=== PATIENT | male | born 1980 | race African-American/Black ===

== ENCOUNTER 2018-11-26 09:47 | Emergency (ER) | payer MEDICARE, MEDICAID ==
[~2018-11-26] VITALS: Ht 172.7 cm; Wt 187.7 kg
[~2018-11-26 09:47] MED LIST: LASIX 40 MG TAB40 MG PO; PREVACID30 M3 PO; TESSALON PER100 MG PO; ULTRAM50 M1 PO; ZOFRAN ODT4 MG PO; ZPAK PO
[2018-11-26] MEDS ORDERED: LASIX 20 MG TAB20 MG PO (10:04)
[2018-11-26] MEDS ORDERED: POTASSI19 XX (10:04)
[2018-11-26] MEDS ORDERED: LOSARTAN POTASS25 MG PO (10:04)
[2018-11-26 10:53] VITALS: BP 173/75
== END 2018-11-26 10:43 | disposition home or self-care (01) ==
LOC: ED 09:47
DX: I10 Essential (primary) hypertension (principal)

== ENCOUNTER 2022-04-22 16:55 | Observation (INO) | payer MEDICARE, MEDICAID ==
[~2022-04-22] VITALS: Ht 172.7 cm; Wt 175.2 kg
[~2022-04-22 16:55] MED LIST changes: +LASIX 20 MG TAB20 MG PO; +LOSARTAN POTASS25 MG PO; +POTASSI19 XX
--- NOTE | 2022-04-22 18:30 | NUR ---
PATIENT TO ED 6, AMBULATORY.
[2022-04-22 18:58] LABS: BASO% 0.3 % (0-3); EOS% 2.1 % (0-8); HEMATOCRIT 37.2 % (39.0-50.0); HEMOGLOBIN 11.3 g/dl (14.0-18.0); MEAN CELL VOLUME 89.2 fL CALC (80.0-100.0); MEAN CORPUSCULAR HGB 27.1 pG CALC (26.0-32.0); MEAN CORPUSCULAR HGB CONC 30.4 g/dL CAL (32.0-36.0); MONO% 7.3 % (2-13); NEUT# 4.68 thou/uL (1.82-7.42); NEUT% 64.4 % (42-76); RED BLOOD COUNT 4.17 mill/uL (4.70-6.10); RED CELL DISTRI WIDTH 13.4 % (11.5-15.5)
[2022-04-22 19:00] LABS: IMMATURE GRANULOCYTES 10.9 % (0.0-5.0)
[2022-04-22 19:23] LABS: ALBUMIN 3.8 g/dL (3.2-5.0); ALKALINE PHOSPHATASE 87 u/l (38-126); BILIRUBIN, TOTAL 0.7 mg/dL (0.2-1.3); BUN 11 mg/dL (9-20); BUN/CREATININE RATIO 18 (12-20 (CALC)); CARBON DIOXIDE 33 mmol/l (22-30); CHLORIDE 101 mmol/l (95-108); CREATININE 0.6 mg/dL (0.7-1.3); GFR FOR AFR.AMER. > 60 ML/MIN (>=60 (CALC)); GFR OTHER RACES > 60 ML/MIN (>=60 (CALC)); SGOT/AST 64 u/l (17-59); TOTAL PROTEIN 7.4 g/dL (6.3-8.2)
[2022-04-22 19:24] LABS: ANION GAP 8 (6-22 (CALC)); POTASSIUM 4.2 mmol/l (3.5-5.1); SODIUM 138 mmol/l (137-146)
[2022-04-22] MEDS ORDERED: LISINOPRIL2.5 MG PO (19:25)
--- NOTE | 2022-04-22 19:36 | NUR ---
HANDOFF TO MARTA DOE AT THIS TIME.
--- NOTE | 2022-04-22 19:43 | NUR ---
PATIENT TO ULTRASOUND.
--- NOTE | 2022-04-22 20:06 | NUR ---
PATIENT RETURNED FROM ULTRASOUND.
--- NOTE | 2022-04-22 20:41 | NUR ---
PATIENT GIVEN A WATER. AWAITING RESULTS/DECISION ON TREATMENT.
--- NOTE | 2022-04-22 22:34 | NUR ---
PATIENT BEING ADMITTED TO [facility].
[2022-04-22] MEDS ORDERED: CLOBETASOL PRO0.05 % EX (22:39)
[2022-04-22 22:55] VITALS: BP 143/70
--- NOTE | 2022-04-22 23:06 | NUR ---
PATIENT TAKEN TO ROOM 288.
[2022-04-23 04:18] VITALS: BP 133/68
[2022-04-23 06:12] LABS: BASO% 0.9 % (0-3); EOS% 3.1 % (0-8); HEMOGLOBIN 9.4 g/dl (14.0-18.0); MEAN CELL VOLUME 89.9 fL CALC (80.0-100.0); MEAN CORPUSCULAR HGB 27.2 pG CALC (26.0-32.0); MEAN CORPUSCULAR HGB CONC 30.2 g/dL CAL (32.0-36.0); MONO% 8.3 % (2-13); NEUT# 3.97 thou/uL (1.82-7.42); RED BLOOD COUNT 3.46 mill/uL (4.70-6.10); RED CELL DISTRI WIDTH 13.5 % (11.5-15.5)
[2022-04-23 06:23] LABS: ALBUMIN 3.2 g/dL (3.2-5.0); ALKALINE PHOSPHATASE 80 u/l (38-126); ANION GAP 5 (6-22 (CALC)); BILIRUBIN, TOTAL 0.5 mg/dL (0.2-1.3); BUN 10 mg/dL (9-20); BUN/CREATININE RATIO 15 (12-20 (CALC)); CARBON DIOXIDE 32 mmol/l (22-30); CHLORIDE 103 mmol/l (95-108); CREATININE 0.7 mg/dL (0.7-1.3); GFR FOR AFR.AMER. > 60 ML/MIN (>=60 (CALC)); GFR OTHER RACES > 60 ML/MIN (>=60 (CALC)); POTASSIUM 3.6 mmol/l (3.5-5.1); SGOT/AST 59 u/l (17-59); SODIUM 136 mmol/l (137-146); TOTAL PROTEIN 6.6 g/dL (6.3-8.2)
[2022-04-23 06:53] LABS: HEMATOCRIT 31.1 % (39.0-50.0); IMMATURE GRANULOCYTES 9.7 % (0.0-5.0)
[2022-04-23 07:29] VITALS: BP 142/79
--- NOTE | 2022-04-23 07:45 | NUR ---
0700 BEDSIDE REPORT RECEIVED FROM LIANE. PT ALERT AND ORIENTED X4. NO SIGNS OF DISTRESS NOTED. RESP EVEN/UNLABORED. PT UPDATED ON POC, VERBALIZES UNDERSTANDING. ALL PERSONAL ITEMS WITHIN REACH. SAFETY PRECAUTIONS IN PLACE.
[2022-04-23 08:19] VITALS: BP 142/79
[2022-04-23 12:23] VITALS: BP 128/61
[2022-04-23] MEDS ORDERED: VIBRAMYCIN100 M2 PO (12:43)
--- NOTE | 2022-04-23 14:29 | NUR ---
S: MIRACLE WHITESIDE III is a 41 M who presents with cellulitis, lymphaedema. He has a history of HTN, back pain, lymphaedema. All medications in patient's chart were reviewed. O: VS: BP 128/61 mmHg, P 83 bpm, RR 18 bpm,T 97.7 F W 175.2 kg, HT 68 inch, Scr= 0.7 mg/dl,CrCl= 220.4 ml/min A: Blood culture is pending. P: Patient is on ceftriaxone 2 g q24h iv. Vancomycin ordered for pharmacy to dose. Start Vancomycin 1500 mg IV Q8H. Vancomycin trough is drawn before the 4th dose on 04/24/22-1330. Vancomycin goal trough is between 10-15 mcg/ml. Pharmacy will follow and or advise on antibiotics use as needed.
--- NOTE | 2022-04-23 18:39 | NUR ---
1744 [facility] IVPB INFUDION COMPLETE. IV REMOVED WITH TIP INTACT, NO IV RELATED COMPLICATIONS NOTED. DC INSTRUCTIONS EXPLAINED TO PT, PT VERBALIZES UNDERSTANDING AND DENIES QUESTIONS. PT DISCHARGED HOME WITH FAMILY VIA AMBULATION WITH ALL PERSONAL BELONGINGS @ 3401.
--- NOTE | 2022-04-24 10:42 | NUR ---
PRELIMINARY BLOOD CULTURE SHOWS GRAM POSITIVE COCCI IN 1/[address] VIALS[address] RESULTS REPORT[address] TO [address] GTZ. POSSIBLE CONTAMINANT. WILL FOLLOW UP WHEN FINAL RESULTS AVAILABLE.
== END 2022-04-23 17:43 | disposition home or self-care (01) ==
LOC: ED 16:55 → ED-I 20:10 → MS2 20:38 → ED 20:38 → MS2 20:38
PROVIDERS: Emergency Medicine; ADMIT Internal Medicine; ATTEND Internal Medicine
DX: L03.115 Cellulitis of right lower limb (principal); I10 Essential (primary) hypertension; I89.0 Lymphedema, not elsewhere classified; E66.9 Obesity, unspecified; F17.200 Nicotine dependence, unspecified, uncomplicated
CPT/HCPCS: J1650; J3370

== ENCOUNTER 2022-05-07 15:09 | Observation (INO) | payer MEDICARE, MEDICAID ==
[~2022-05-07] VITALS: Ht 172.7 cm; Wt 172.8 kg
[~2022-05-07 15:09] MED LIST changes: +CLOBETASOL PRO0.05 % EX; +LISINOPRIL2.5 MG PO; +VIBRAMYCIN100 M2 PO
[2022-05-07 16:07] LABS: BASO% 0.8 % (0-3); EOS% 1.8 % (0-8); HEMOGLOBIN 11.2 g/dl (14.0-18.0); IMMATURE GRANULOCYTES 0.2 % (0.0-5.0); LYMPH% 18.2 % (15-41); MEAN CELL VOLUME 88.2 fL CALC (80.0-100.0); MEAN CORPUSCULAR HGB 26.5 pG CALC (26.0-32.0); MEAN CORPUSCULAR HGB CONC 30.1 g/dL CAL (32.0-36.0); MONO% 9.2 % (2-13); NEUT# 3.41 thou/uL (1.82-7.42); NEUT% 69.8 % (42-76); RED BLOOD COUNT 4.22 mill/uL (4.70-6.10); RED CELL DISTRI WIDTH 13.1 % (11.5-15.5)
[2022-05-07 16:11] LABS: HEMATOCRIT 37.2 % (39.0-50.0)
[2022-05-07 16:16] LABS: ALKALINE PHOSPHATASE 64 u/l (38-126); ANION GAP 10 (6-22 (CALC)); BILIRUBIN, TOTAL 0.6 mg/dL (0.2-1.3); BUN 14 mg/dL (9-20); BUN/CREATININE RATIO 19 (12-20 (CALC)); CARBON DIOXIDE 33 mmol/l (22-30); CHLORIDE 98 mmol/l (95-108); CREATININE 0.8 mg/dL (0.7-1.3); GFR FOR AFR.AMER. > 60 ML/MIN (>=60 (CALC)); GFR OTHER RACES > 60 ML/MIN (>=60 (CALC)); LIPASE 670 u/l (23-300); POTASSIUM 4.3 mmol/l (3.5-5.1); SGOT/AST 41 u/l (17-59); SODIUM 137 mmol/l (137-146)
[2022-05-07 16:17] LABS: ALBUMIN 4.6 g/dL (3.2-5.0); TOTAL PROTEIN 8.3 g/dL (6.3-8.2)
[2022-05-07 16:58] VITALS: BP 141/75
[2022-05-07 17:01] VITALS: BP 142/86
[2022-05-07 17:31] VITALS: BP 133/43
[2022-05-07 20:35] VITALS: BP 157/87
[2022-05-07 20:47] VITALS: BP 158/52
[2022-05-08 04:21] VITALS: BP 145/59
[2022-05-08 05:56] LABS: URINE BILIRUBIN - DIPSTICK NEGATIVE (NEGATIVE); URINE BLOOD DIPSTICK NEGATIVE (NEGATIVE); URINE COLOR YELLOW; URINE GLUCOSE - DIPSTICK NEGATIVE (NEGATIVE); URINE KETONE 15 mg/dL (NEGATIVE); URINE LEUK ESTERASE NEGATIVE (NEGATIVE); URINE PROTEIN - DIPSTICK NEGATIVE (NEG-TRACE); URINE UROBILINOGEN - DIPSTICK 0.2 E.U./dL (0.2)
[2022-05-08 05:57] LABS: URINE NITRITE - DIPSTICK NEGATIVE (Negative)
[2022-05-08 06:04] LABS: BASO% 0.7 % (0-3); EOS% 3.4 % (0-8); HEMATOCRIT 34.5 % (39.0-50.0); HEMOGLOBIN 10.3 g/dl (14.0-18.0); IMMATURE GRANULOCYTES 0.2 % (0.0-5.0); LYMPH% 21.8 % (15-41); MEAN CELL VOLUME 88.5 fL CALC (80.0-100.0); MEAN CORPUSCULAR HGB 26.4 pG CALC (26.0-32.0); MEAN CORPUSCULAR HGB CONC 29.9 g/dL CAL (32.0-36.0); NEUT# 2.73 thou/uL (1.82-7.42); NEUT% 61.9 % (42-76); RED BLOOD COUNT 3.9 mill/uL (4.70-6.10)
[2022-05-08 06:15] LABS: ALKALINE PHOSPHATASE 57 u/l (38-126); ANION GAP 7 (6-22 (CALC)); BILIRUBIN, TOTAL 0.6 mg/dL (0.2-1.3); BUN 12 mg/dL (9-20); BUN/CREATININE RATIO 18 (12-20 (CALC)); CARBON DIOXIDE 33 mmol/l (22-30); CHLORIDE 101 mmol/l (95-108); CREATININE 0.7 mg/dL (0.7-1.3); GFR FOR AFR.AMER. > 60 ML/MIN (>=60 (CALC)); GFR OTHER RACES > 60 ML/MIN (>=60 (CALC)); POTASSIUM 3.8 mmol/l (3.5-5.1); SGOT/AST 35 u/l (17-59); SODIUM 137 mmol/l (137-146); TOTAL PROTEIN 7.6 g/dL (6.3-8.2)
[2022-05-08 06:20] VITALS: BP 120/43
== END 2022-05-08 13:09 | disposition home or self-care (01) ==
LOC: ED 15:09 → ED-I 19:00 → ED 19:16 → MS2 19:42
PROVIDERS: Family Medicine; ADMIT Internal Medicine; ATTEND Internal Medicine
DX: K85.10 Biliary acute pancreatitis without necrosis or infection (principal); I10 Essential (primary) hypertension; I89.0 Lymphedema, not elsewhere classified; E66.01 Morbid (severe) obesity due to excess calories; F17.200 Nicotine dependence, unspecified, uncomplicated
CPT/HCPCS: G0378; Q9967